=== PATIENT | female | born 1995 | race Caucasian/White ===

== ENCOUNTER 2024-07-29 10:54 | Outpatient (AMB) | payer BC, SELFPAY ==
[2024-07-29 11:14] VITALS: BP 118/80; PULSE 18; RESP 98; TEMP 36.8; O2SAT 96; BMI 28.8
--- NOTE | 2024-07-29 11:14 | AMB.OBINITIA ---
Vital Signs 07/29/24 11:14 Height 1.47 m Height Method Stated Weight 62.652 kg Weight Measurement Method Standing Scale BMI 28.8 BP 118/80 Blood Pressure Source Automatic Cuff Blood Pressure Location Left Upper Arm Position Sitting Respiration 98 H Pulse 18 L Pulse Source Monitor Temp 98.2 F Temp Source Oral Pulse Oximetry (%) 96 Oxygen Delivery Method Room Air Allergies/Home Meds Allergies & Medications Allergies No Known Allergies Allergy (Verified 07/29/24 11:16) Medication Reconciliation No Known Home Medications 07/29/24 [History Confirmed 07/29/24] Intake Visit Data Collection New Patient or Established: New Patient (never been to [facility]) Reason for Visit:: First visit Seen by Clinical Staff ONLY (RN/MA): No Social Science Professor Required: No Do You Feel Safe at Home: Yes Authorities Contacted: N/A Primary Care Provider: no primary care provider PCP or OBGYN visit in last 3 months: No Hx Now: Yes Are you currently on any form of Control: No Last menstrual period: 04/25/24 Pain Present Currently: No Pain Scale Used: Jamison-Ruiz/Numerical Pain scale:: 0 Smoking Status Smoking Status: Never smoker Questionnaires Covid-19 Vaccine Questionnaire Has patient been vacinated for Covid-19 Have you been vacinated for Covid-19: Yes Date of last Covid Vaccine or Booster?: 02/22/22 PHQ-9 PHQ-2 Over the last 2 weeks, how often have you been bothered by any of the following problems? 1. Little interest or pleasure in doing things: not at all 2. Feeling down, depressed, or hopeless: not at all Total score: 0 PHQ-9 3. Trouble falling or staying asleep, or sleeping too much: Not at all 4. Feeling tired or having little energy: Not at all 5. Poor appetite or overeating: Not at all 6. Feeling bad about yourself - or that you are a failure or have let yourself or your family down: Not at all 7. Trouble concentrating on things, such as reading the newspaper or watching television: Not at all 8. Moving or speaking so slowly that other people could have noticed? - Or the opposite - being so fidgety or restless that you have been moving around a lot more than usual: not at all 9. Thoughts that you would be better off or of hurting yourself in some way: Not at all Total score: 0 Source: Developed by Drs. Lucien Arellano, Tiara Wesley, Sukhwinder Faulkner and colleagues, with an educational yamile from [employer]. Depression screen completed yes Social History Living Situation History Marital Status: Lives With: Family Housing: House Housing Other:: Works 3 days a week. Has 2 children at home age 3-1/2 and 21 months. 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 Feel Safe at Home: Yes Past Medical History Past Medical History Have you ever been diagnosed with any of the following: Neurological Problems Meningitis: No Seizures: No Epilepsy: No Fisher's Palsy: No Migraine: No Cardiology Problems Cardiac Arrhythmia: No Heart Murmur: No Hypercholesterolemia: No Hypertension: No Respiratory Problems Asthma: No Pulmonary Embolism: No Smoking: No Stomache/Intestinal Problems Celiac Disease: No Gall Bladder Disease: No Colitis: No Diverticulosis: No Irritable Bowel: No Gastroesophageal Reflux Disease: No Genital/Urinary Problems Renal Disease: No Kidney Stones: No Reproductive Problems Breast Cancer: No Endometriosis: No Fibroids: No Genital Herpes: No Gonorrhea: No Pelvic Inflammatory Disease: No Polycystic Ovarian Syndrome: No Previous Pregnancies: Yes (History of x 2 in 2020 and 2022) Syphilis: No Musculoskeletal Problems Arthritis: No Rheumatoid Arthritis: No Scoliosis: No Fibromyalgia: No Head,Eye,Nose,Throat Problems Glaucoma: No Endocrine Problems Diabetes Mellitus Type 2: No Hyperthyroidism: No Hypothyroidism: No Thyroid Cancer: No Systemic Lupus Erythematosus: No Blood Problems Anemia: No Clotting Problems: No Psychologic Problems Depression: No Anxiety: No Attention Deficit Disorder: No Depression: No Other Problems Hospitalization: Yes (4 x 2 in past) Autoimmune Disease: No Cosmetic Surgery: No Anesthesia Reactions: No Surgical History Appendectomy: No Bariatric Surgery: No Breast Surgery: No Cholecystectomy: No Additional Surgical History: two C Sections History of Present Illness HPI Narrative The patient is a 28-year-old -0-0-2 with a history of x 2 in the past. She used to be a patient of mine in [place] and I did both her C-sections. Patient presents today as a new OB with a last menstrual period 04/25/2024 making her approximately 13-1/2 weeks today with a due date of 01/30/2025. Patient reports significant fatigue. No recent nausea. She does admit that she had some type of gastroenteritis about 5 weeks ago and had to have an IV and got a couple of liters of fluid and felt better. No fevers with that infection. Patient just states she is just worn out this . She is keeping food down. She has 2 boys, her son Sid is going to turn 4 in February and her son Dennys will turn two in October. They are both quite busy. 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 Her Raul is a real estate branch manager. OB Initial Visit Menstrual History Menstrual reliability: definite Flow: normal Menstrual regularity: regular Monthly: Yes Age at menarche: 12 On control pills at conception: No Date of positive home test: 06/04/24 Associated symptoms (LMP): Reports nausea, vomiting and other (headaches) OB History : 3 Para: 2 Hx # Pregnancies: 0 Hx Total # of Abortions (Spontaneous & Elective): 0 # of Living Children: 2 Delivery History 1st : Child's name: Sid date: 02/14/21 sex: male Gestational age at delivery (weeks): 40 Delivery type: Delivery complications: None History of depression before or after : No 2nd : Child's name: Roshni date: 10/03/22 sex: male Gestational age at delivery (weeks): 41 Delivery type: Delivery complications: None History of depression before or after : No Infection History & Risk Evaluation History of STDs: none Varicella/chicken pox status: immunized Genetic Screening & History Genetic Screening/Teratology Counseling - Includes patient, baby's father, or anyone in either family with: 1. Patient's age 35 years or older as of estimated date of delivery: No 2. Thalassemia (Tristanian, [place]er, Mediterranean, or Background); MCV less than 80: No 3. Neural Tube Defect (Meningomyelocele, Spina Bifida, or Anencephaly): No 4. Congenital Heart Defect: No 5. Down Syndrome: No 6. Jonathan-Sachs (Ashkenazi Anglican, Cajun, Portuguese [place]): No 7. Ender Disease (Ashkenazi Anglican): No 8. Familial Dysautonomia (Ashkenazi Anglican): No 9. Sickle Cell Disease or Trait (): No 10. Hemophilia or other blood disorders: No 11. Muscular Dystrophy: No 12. Cystic Fibrosis: No 13. Berkeley's Chorea: No 14. Mental Retardation/Autism: No 15. Other inherited genetic or chromosomal disorder: No 16. Maternal Metabolic Disorder (EG,TYPE 1 Diabetes, PKU): No 17. Patient or baby's father had a child with defects not listed above: No 18. Recurrent loss or a stillbirth: No 19. Medications (including supplements, vitamins, herbs or otc drugs)/illicit/recreational drugs/alcohol since last menstrual period: No 20. Any other: No Comments/Counseling: Pt declines NIPT all fantastic it came back Infection History 1. Live with someone with TB or exposed to TB: No 2. Rash or viral illness since last menstrual period: No 3. Hepatitis B,C: No Other (see comments) Source: [employer] [place] [employer] OB Flowsheet OB Flowsheet Initial Weight: Not Recorded Date <del>?</del> EGA Weight Edema CTX Effacement BP Fundal ht Pres Dilation Effacement Station Visit Note Alb Glu FHR Mov 07/29/24 <del>?</del> 13w 4d 62.652 kg 118/80 147 Review of Systems Constitutional Constitutional: Reports system reviewed and no additional complaints, except as documented Comments: Patient reports fatigue and mild nausea. No significant vomiting no vaginal bleeding no pelvic pain. Gastrointestinal Gastrointestinal: Reports nausea and Reports vomiting Exam General Limitations: no limitations General Appearance: alert, in no apparent distress, comfortable, cooperative, healthy appearing, well groomed and other (Patient appears slightly pale) Head Head exam: atraumatic, normocephalic and normal inspection Neck Neck exam: Present normal inspection, full ROM and trachea midline Chest Chest inspection: Present normal inspection and symmetric chest wall rise Resp Respiratory exam: Present normal lung sounds bilaterally Card Cardiovascular exam: Present regular rate, normal rhythm and normal heart sounds Abdominal Abdominal exam: Present soft, normal bowel sounds and scar (Well-healed Pfannenstiel scar) External exam: Present other (Patient declined a Pap smear today) Bimanual exam: Present normal bimanual exam and uterine enlargement (14 to 15 weeks size) Psych Psychiatric exam: Present normal affect and normal mood Skin Skin exam: Present warm, dry, intact and normal color Assessment & Plan Diagnosis / Problem List (1) History of delivery, currently : Status: Acute Plan: Patient to get records. Plan repeat at 39 weeks. Patient to get labs. Declines NIPT. (2) : Status: Acute Qualifiers: Weeks of gestation: 13 weeks Qualified Code(s): Z3A.13 - 13 weeks gestation of Plan: Patient might consider tubal ligation this . Will sign tubal papers at 30 weeks . Additional Plan Follow Up: 4 Weeks 4 Weeks Office Procedures OB Clinic LOC & Office Proc's Nursing/Assessment Patient Status: Initial/New Patient OB Clinic Nursing Assessment: Medication Reconciliation, Update PMH in EMR and Vital Signs OB Clinic Coordination of Care: Complex Care and Chronic Disease 1-5, Consent,records obtained, informed consent, Education Simp Pt/Fam, Lab and Imaging orders and Staff clarify orders Special Needs: Heart tones Miscellaneous Interventions: Pelvic/Pap Smear Set up New Patient Charge New Patient Point Assignment: [id number] New Patient Point Charge: LANDSCAPE FOREMAN Level 4 ([id number]) ASSET PROTECTION AGENT: Papsmear Pap Smear Procedure [place] in room during procedure?: No Papsmear completed: yes OB Ultrasound OB Ultrasound Ultrasound technique:: transabdominal Gestational sac assessment: Presence, location, size, shape:: Intrauterine with a crown-rump length of 8.24 cm corresponding to 14 weeks 1 day. EDC 01/20/2025. Cardiac activity at 147 bpm noted
== END 2024-07-29 12:52 | disposition home or self-care (01) ==
LOC: HODSOBC 10:54
PROVIDERS: Supervising Provider Obstetrics & Gynecology; Visit Provider Obstetrics & Gynecology
DX: O09.291 Supervision of pregnancy with other poor reproductive or obstetric history, first trimester (principal); O34.219 Maternal care for unspecified type scar from previous cesarean delivery; Z3A.13 13 weeks gestation of pregnancy; Z53.20 Procedure and treatment not carried out because of patient's decision for unspecified reasons
CPT/HCPCS: 99204; Q0091; G0463

== ENCOUNTER → 2024-08-19 | Outpatient (CLI) | payer OTHER, SELFPAY ==
[2024-08-19 12:33] LABS: Collection Type, Urine Clean Catch
[2024-08-19 13:38] LABS: Basophils % (Auto) 0 % (0-2.5); Eosinophils # (Auto) 0.1 Thou/mm3 (0.0-0.5); Eosinophils % (Auto) 1 % (0-10); Hematocrit 38.6 % (36.0-46.0); Hemoglobin 13.3 g/dL (12.0-16.0); Immature Granulocytes % (Auto) 1 % (0-0); Immature Granulocytes Auto 0.13 Thou/mm3 (0.00-0.00); Lymphocytes # (Auto) 1.7 Thou/mm3 (1.0-4.8); Lymphocytes % (Auto) 11 % (10-50); Mean Corpuscular HGB Conc 34.5 g/dl (31.0-37.0); Mean Corpuscular Hemoglobin 30.7 pg (25.0-35.0); Mean Corpuscular Volume 89 fL (80-100); Monocytes # (Auto) 0.8 Thou/mm3 (0.0-0.8); Monocytes % (Auto) 5 % (0-12); Neutrophils # (Auto) 12.5 Thou/mm3 (1.8-7.7); Neutrophils % (Auto) 82 % (37-80); Nucleated Red Blood Cell % 0 /100 WBC (0); Platelet Count 365 Thou/mm3 (140-440); RDW Standard Deviation 41.6 fL (36.4-46.3); Red Blood Count 4.33 Miln/mm3 (4.00-5.20); White Blood Count 15.2 Thou/mm3 (3.6-11.0)
[2024-08-19 13:51] LABS: Bacteria,Urine 1+; Bilirubin,Urine Negative (Negative); Blood,Urine 1+ (Negative); Clarity,Urine Turbid (Clear/Hazy); Color,Urine Lt-Yellow (Lt Yel-Yel); Culture Indicated,Urine Contaminated; Glucose, Urine Negative (Negative); Ketones,Urine Negative (Negative); Leukocyte Esterase,Urine Negative (Negative); Nitrite,Urine Negative (Negative); Protein,Urine Negative (Neg - Trace); RBC,Urine 1 /hpf (0-3); Specific Gravity,Urine 1.008 (1.001-1.035); Squamous Epithelial Cell,Urine 34 /hpf (0-5); Urobilinogen,Urine Negative mg/dL (0.0-1.0); WBC,Urine 1 /hpf (0-5)
[2024-08-19 13:54] LABS: Glucose Estimated Average 94 mg/dL (80-131); Hemoglobin A1C 4.9 % Hgb (4.8-6.0)
[2024-08-19 14:16] LABS: Hepatitis B Surface Antigen Non Reactive (Non React); Rubella, IgG Antibody Reactive (Immune); Vitamin B12 472 pg/mL (211-911); Vitamin D 25 Hydroxy Total 24.4 ng/mL (7.3-40.2)
[2024-08-19 14:57] LABS: HIV (1&2) Antibody Rapid Non-Reactive
== END | disposition home or self-care (01) ==
PROVIDERS: PCP Nurse Practitioner Family; Referring Provider Obstetrics & Gynecology; Visit Provider Obstetrics & Gynecology
DX: Z34.90 Encounter for supervision of normal pregnancy, unspecified, unspecified trimester (principal)
CPT/HCPCS: 36415; 81001; 82306; 82607; 83036; 85025; 86703; 86762; 86850; 86900; 86901; 87340

== ENCOUNTER 2024-09-05 13:10 | Outpatient (AMB) | payer OTHER, SELFPAY ==
[2024-09-05 13:15] VITALS: BP 109/73; PULSE 97; RESP 18; TEMP 36.6; O2SAT 98; BMI 29.6
--- NOTE | 2024-09-05 13:15 | OBCLNT_ITS ---
<Statement entered by Yennifer Centeno (OB Clinic)MD - 09/14/24 15:55> The patient was seen by Dr. Zhou on 09/05/2024 was as I was at the hospital attending to an emergency. Vital Signs 09/05/24 13:15 Height 1.47 m Height Method Stated Weight 64.013 kg Weight Measurement Method Standing Scale BMI 29.6 BP 109/73 Blood Pressure Source Automatic Cuff Blood Pressure Location Left Upper Arm Position Sitting Respiration 18 Pulse 97 Pulse Source Monitor Temp 97.8 F Temp Source Oral Pulse Oximetry (%) 98 Oxygen Delivery Method Room Air Allergies/Home Meds Allergies & Medications Allergies No Known Allergies Allergy (Verified 09/05/24 13:16) Medication Reconciliation No Known Home Medications 07/29/24 [History Confirmed 09/05/24] Intake Visit Data Collection New Patient or Established: Established Patient (seen at [facility] within 3 years) Reason for Visit:: CARE Seen by Clinical Staff ONLY (RN/MA): No Mechanical Service Technician Required: No Do You Feel Safe at Home: Yes Authorities Contacted: N/A PCP or OBGYN visit in last 3 months: Yes Hx Now: Yes Are you currently on any form of Control: No Last menstrual period: 04/25/25 Pain Present Currently: No Pain Scale Used: Jamison-Ruiz/Numerical Pain scale:: 0 Smoking Status Smoking Status: Never smoker Questionnaires Covid-19 Vaccine Questionnaire Has patient been vacinated for Covid-19 Have you been vacinated for Covid-19: Yes PHQ-9 PHQ-2 Over the last 2 weeks, how often have you been bothered by any of the following problems? 1. Little interest or pleasure in doing things: not at all 2. Feeling down, depressed, or hopeless: not at all Total score: 0 PHQ-9 3. Trouble falling or staying asleep, or sleeping too much: Not at all 4. Feeling tired or having little energy: Not at all 5. Poor appetite or overeating: Not at all 6. Feeling bad about yourself - or that you are a failure or have let yourself or your family down: Not at all 7. Trouble concentrating on things, such as reading the newspaper or watching television: Not at all 8. Moving or speaking so slowly that other people could have noticed? - Or the opposite - being so fidgety or restless that you have been moving around a lot more than usual: not at all 9. Thoughts that you would be better off or of hurting yourself in some way: Not at all Total score: 0 Source: Developed by Drs. Lucien Arellano, Tiara Wesley, Sukhwinder Faulkner and colleagues, with an educational yamile from [employer]. Depression screen completed yes Social History Living Situation History Lives With: Family Housing: House Housing Other:: Works 3 days a week. Has 2 children at home age 3-1/2 and 21 months. 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 Feel Safe at Home: Yes Past Medical History Past Medical History Have you ever been diagnosed with any of the following: Neurological Problems Cerebrovascular Accident (CVA): No Transient Ischemic Attacks (TIA): No Meningitis: No Seizures: No Epilepsy: No Fisher's Palsy: No Migraine: No Cardiology Problems Myocardial Infarction: No Cardiac Arrhythmia: No Atrial Fibrillation: No Heart Murmur: No Hypercholesterolemia: No Hypertension: No Hypotension: No Respiratory Problems Chronic Obstructive Pulmonary Disease (COPD): No Asthma: No Bronchitis: No Tuberculosis: No Pulmonary Embolism: No Hx Cough: No Cough: No Wheezing: No Smoking: No Smoking Exposure: No Tobacco Use: No Stomache/Intestinal Problems Liver Cancer: No Hepatitis: No Celiac Disease: No Gall Bladder Disease: No Colitis: No Diverticulosis: No Irritable Bowel: No Gastroesophageal Reflux Disease: No Genital/Urinary Problems Renal Disease: No Kidney Stones: No Reproductive Problems Breast Cancer: No Endometriosis: No Fibroids: No Genital Herpes: No Gonorrhea: No Pelvic Inflammatory Disease: No Polycystic Ovarian Syndrome: No Previous Pregnancies: Yes (History of x 2 in 2020 and 2022) Syphilis: No Musculoskeletal Problems Bone Cancer: No Arthritis: No Rheumatoid Arthritis: No Scoliosis: No Fibromyalgia: No Osteomyelitis: No Poliovirus: No Head,Eye,Nose,Throat Problems Cataracts: No Glaucoma: No Blind: No Retinal Detachment: No Endocrine Problems Diabetes Mellitus Type 2: No Hyperthyroidism: No Hypothyroidism: No Thyroid Cancer: No Systemic Lupus Erythematosus: No Blood Problems Anemia: No Sickle Cell Disease: Yes Clotting Problems: No Psychologic Problems Bipolar Disorder: No Depression: No Anxiety: No Behavior Problems: No Attention Deficit Disorder: No Depression: No Other Problems Hospitalization: Yes (4 x 2 in past) Down Syndrome: No Autism: No Developmental Delay: No Cosmetic Surgery: No Shingles: No Falls: No Blood Transfusions: No Anesthesia Reactions: No Organ Transplant: No Chemotherapy: No Radiation Therapy: No Hyperbaric Therapy: No Chicken Pox: No Measles: No Hepatitis A: No Hepatitis B: No Hepatitis C: No Communicable Disease: No Cancer: No Surgical History Appendectomy: No Bariatric Surgery: No Breast Surgery: No Cancer Surgery: No Cholecystectomy: No History of Present Illness HPI Narrative @19w. She has a history of two previous sections. The patient reports feeling little movement at this stage, describing it as very little movement and a little flutters. She notes that in her previous pregnancies, she didn't feel much movement until about the 5-month marleni. The patient is unsure of the fetus's sex but thinks it might be a girl. She is currently considering her options for contraception after this , including the possibility of tubal ligation, but is also exploring non-permanent alternatives. No CTX/LOF/VB, reports good FM+ Review of Systems Review of Systems Systems Reviewed: All systems reviewed, normal except as documented Visit MOE Calculator Estimated Delivery Date Method Current WG Current Estimate 01/30/25 Ultrasound #1 20w 1d Other Estimates 01/30/25 LMP (Certain) 20w 1d Initial Weight: Not Recorded Date -?-?-?-?-?-?-?-?-?-?-?-?- EGA Weight Edema CTX Effacement BP Fundal ht Pres Dilation Effacement Station Visit Note Alb Glu FHR Mov 07/29/24 -?-?-?-?-?-?-?-?-?-?-?-?- 13w 4d 62.652 kg 118/80 147 09/05/24 -?-?-?-?-?-?-?-?-?-?-?-?- 19w 0d 64.013 kg 109/73 002 at 19 weeks gestation, s/p 2 C-sections. FHR 165 bpm, minimal movement consistent with prior pregnancies. Labs from 08/19/24 normal; urine slightly concentrated. Declined genetic screening. Discussed contraception options including tubal ligation. Plan: Refer to MFM (Dr. Sarah Beth Berman) for anatom y scan at 20?24 weeks Schedule glucose tolerance test and foll ow-up at 24 weeks Await scheduling call from [facility] 145 Exam General Limitations: no limitations General Appearance: alert, in no apparent distress, comfortable, cooperative, healthy appearing, well developed and well groomed Head Head exam: atraumatic, normocephalic and normal inspection Chest Chest inspection: Present normal inspection and symmetric chest wall rise Abdominal Abdominal exam: Present soft and normal bowel sounds Psych Psychiatric exam: Present normal affect and normal mood Skin Skin exam: Present warm, dry, intact and normal color Assessment & Plan Diagnosis / Problem List (1) History of delivery, currently : Status: Acute Plan: , , status post 2 sections Patient is a at 19w gestation based on the context of the visit. She has a history of two previous sections. heart rate was noted to be 165 bpm, which was described as normal. Patient reports minimal movement, describing little flutters, which is consistent with her experience in previous pregnancies. Recent lab work from August 19, 2024, shows normal hemoglobin, chemistry, and serology results. Urine was noted to be slightly concentrated but otherwise unremarkable. - Schedule follow-up visit at 24 weeks gestation - Arrange glucose tolerance test for next visit - Refer to [facility] specialist Dr. Sarah Beth Berman at [facility] for anatomy survey ultrasound between 20-24 weeks - Patient to await call from [facility] to schedule [facility] appointment - Declined genetic screening - Discussed potential for tubal ligation, but patient is considering alternative contraceptive options Office Procedures OB Clinic LOC & Office Proc's Nursing/Assessment Patient Status: Established Patient OB Clinic Nursing Assessment: Medication Reconciliation, Update PMH in EMR and Vital Signs OB Clinic Coordination of Care: Complex Care and Chronic Disease 1-5, Consent,records obtained, informed consent, Education Simp Pt/Fam, Lab and Imaging orders and Staff clarify orders Established Patient Charge Established Patient Point Assignment: 100 Established Patient Point Charge: EP Level 3 (80-115) Bedside Ultrasounds US Transabdominal <14 weeks at bedside: Yes
== END 2024-09-05 14:09 | disposition home or self-care (01) ==
PROVIDERS: PCP Nurse Practitioner Family; Referring Provider Nurse Practitioner Family; Supervising Provider Obstetrics & Gynecology; Visit Provider Obstetrics & Gynecology
DX: O09.292 Supervision of pregnancy with other poor reproductive or obstetric history, second trimester (principal); O34.219 Maternal care for unspecified type scar from previous cesarean delivery; Z3A.19 19 weeks gestation of pregnancy
CPT/HCPCS: 76801; 99213; G0463

== ENCOUNTER 2024-10-11 09:13 | Outpatient (AMB) | payer OTHER, SELFPAY ==
--- NOTE | 2024-10-11 09:15 | OBCLNT_ITS ---
Vital Signs 10/11/24 09:18 Height 1.47 m Height Method Stated Weight 67.132 kg Weight Measurement Method Standing Scale BMI 31.0 BP 112/72 Blood Pressure Source Automatic Cuff Blood Pressure Location Left Upper Arm Position Sitting Respiration 18 Pulse 95 Pulse Source Monitor Temp 97.9 F Temp Source Oral Pulse Oximetry (%) 98 Oxygen Delivery Method Room Air Allergies/Home Meds Allergies & Medications Allergies No Known Allergies Allergy (Verified 10/11/24 09:19) Medication Reconciliation No Known Home Medications 07/29/24 [History Confirmed 10/11/24] Intake Visit Data Collection New Patient or Established: Established Patient (seen at [facility] within 3 years) Reason for Visit:: CARE Seen by Clinical Staff ONLY (RN/MA): No Service Parts Coordinator Required: No Do You Feel Safe at Home: Yes Authorities Contacted: N/A PCP or OBGYN visit in last 3 months: Yes Hx Now: Yes Are you currently on any form of Control: No Pain Present Currently: No Pain Scale Used: Jamison-Ruiz/Numerical Pain scale:: 0 Smoking Status Smoking Status: Never smoker Questionnaires Covid-19 Vaccine Questionnaire Has patient been vacinated for Covid-19 Have you been vacinated for Covid-19: Yes PHQ-9 PHQ-2 Over the last 2 weeks, how often have you been bothered by any of the following problems? 1. Little interest or pleasure in doing things: not at all 2. Feeling down, depressed, or hopeless: not at all Total score: 0 PHQ-9 3. Trouble falling or staying asleep, or sleeping too much: Not at all 4. Feeling tired or having little energy: Not at all 5. Poor appetite or overeating: Not at all 6. Feeling bad about yourself - or that you are a failure or have let yourself or your family down: Not at all 7. Trouble concentrating on things, such as reading the newspaper or watching television: Not at all 8. Moving or speaking so slowly that other people could have noticed? - Or the opposite - being so fidgety or restless that you have been moving around a lot more than usual: not at all 9. Thoughts that you would be better off or of hurting yourself in some way: Not at all Total score: 0 Source: Developed by Tiara BourgeoisW. Lupillo, Sukhwinder Faulkner and colleagues, with an educational yamile from [employer]. Depression screen completed yes Social History Living Situation History Lives With: Family Housing: House Housing Other:: Works 3 days a week. Has 2 children at home age 3-1/2 and 21 months. 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 Feel Safe at Home: Yes Past Medical History Past Medical History Have you ever been diagnosed with any of the following: Neurological Problems Cerebrovascular Accident (CVA): No Transient Ischemic Attacks (TIA): No Meningitis: No Seizures: No Epilepsy: No Fisher's Palsy: No Migraine: No Cardiology Problems Myocardial Infarction: No Cardiac Arrhythmia: No Atrial Fibrillation: No Heart Murmur: No Hypercholesterolemia: No Hypertension: No Hypotension: No Respiratory Problems Chronic Obstructive Pulmonary Disease (COPD): No Asthma: No Bronchitis: No Tuberculosis: No Pulmonary Embolism: No Hx Cough: No Cough: No Wheezing: No Smoking: No Smoking Exposure: No Tobacco Use: No Stomache/Intestinal Problems Liver Cancer: No Hepatitis: No Celiac Disease: No Gall Bladder Disease: No Colitis: No Diverticulosis: No Irritable Bowel: No Gastroesophageal Reflux Disease: No Genital/Urinary Problems Renal Disease: No Kidney Stones: No Reproductive Problems Breast Cancer: No Endometriosis: No Fibroids: No Genital Herpes: No Gonorrhea: No Pelvic Inflammatory Disease: No Polycystic Ovarian Syndrome: No Previous Pregnancies: Yes (History of x 2 in 2020 and 2022) Syphilis: No Musculoskeletal Problems Bone Cancer: No Arthritis: No Rheumatoid Arthritis: No Scoliosis: No Fibromyalgia: No Osteomyelitis: No Poliovirus: No Head,Eye,Nose,Throat Problems Cataracts: No Glaucoma: No Blind: No Retinal Detachment: No Endocrine Problems Diabetes Mellitus Type 2: No Hyperthyroidism: No Hypothyroidism: No Thyroid Cancer: No Systemic Lupus Erythematosus: No Blood Problems Anemia: No Sickle Cell Disease: Yes Clotting Problems: No Psychologic Problems Bipolar Disorder: No Depression: No Anxiety: No Behavior Problems: No Attention Deficit Disorder: No Depression: No Other Problems Hospitalization: Yes (4 x 2 in past) Down Syndrome: No Autism: No Developmental Delay: No Cosmetic Surgery: No Shingles: No Falls: No Blood Transfusions: No Anesthesia Reactions: No Organ Transplant: No Chemotherapy: No Radiation Therapy: No Hyperbaric Therapy: No Chicken Pox: No Measles: No Hepatitis A: No Hepatitis B: No Hepatitis C: No Communicable Disease: No Cancer: No Surgical History Appendectomy: No Bariatric Surgery: No Breast Surgery: No Cancer Surgery: No Cholecystectomy: No History of Present Illness HPI Narrative The patient is a 28 y/o , history of x 2. For repeat C- section. She is . Her is a rancher. She has 2 boys Nnamdi and Dennys. Care OB Visit Log OB Flowsheet Initial Weight: Not Recorded Date -?-?-?-?-?-?-?-?-?-?-?-?- EGA Weight Edema CTX Effacement BP Fundal ht Pres Dilation Effacement Station Visit Note Alb Glu FHR Mov 07/29/24 -?-?-?-?-?-?-?-?-?-?-?-?- 13w 4d 62.652 kg 118/80 147 09/05/24 -?-?-?-?-?-?-?-?-?-?-?-?- 19w 0d 64.013 kg 109/73 002 at 19 weeks gestation, s/p 2 C-sections. FHR 165 bpm, minimal movement consistent with prior pregnancies. Labs from 08/19/24 normal; urine slightly concentrated. Declined genetic screening. Discussed contraception options including tubal ligation. Plan: Refer to [facility] (Dr. Sarah Beth Berman) for anatom y scan at 20?24 weeks Schedule glucose tolerance test and foll ow-up at 24 weeks Await scheduling call from [facility]?s 145 10/11/24 -?-?-?-?-?-?-?-?-?-?-?-?- 24w 1d 67.132 kg 112/72 25 G ood movement no vaginal bleeding. She thinks it is a girl on ultrasound no report for ultrasound back yet 147 MOE Calculator Estimated Delivery Date Method Current WG Current Estimate 01/30/25 Ultrasound #1 24w 3d Other Estimates 01/30/25 LMP (Certain) 24w 3d Comments: labs 08/19/2024 at [facility]: O+/antibody negative/hepatitis B surface antigen negative//HIV negative/rubella immune. No RPR, urinalysis, GC, chlamydia available even though these were ordered on the panel Expected Delivery Route/Plan History of x 2. Schedule repeat between 38 and 39 weeks. Specific Issue/Plans Patient's will get vasectomy declines tubal ligation. Declined NIPT Notes Visit Date: 10/11/24 Last Updated by: Yennifer Centeno (OB Clinic)MD Need ultrasound report. GCT ordered. Need RPR, urine culture, GC, chlamydia as these were not done at [facility] as ordered. Office Procedures OB Clinic LOC & Office Proc's Nursing/Assessment Patient Status: Established Patient OB Clinic Nursing Assessment: Medication Reconciliation, Update PMH in EMR and Vital Signs OB Clinic Coordination of Care: Complex Care and Chronic Disease 1-5, Consent,records obtained, informed consent, Education Simp Pt/Fam, Lab and Imaging orders, Results/Orders obtained and Staff clarify orders Special Needs: Heart tones Established Patient Charge Established Patient Point Assignment: 135 Established Patient Point Charge: EP Level 4 (120-155)
[2024-10-11 09:18] VITALS: BP 112/72; PULSE 95; RESP 18; TEMP 36.6; O2SAT 98; BMI 31.0
== END 2024-10-11 09:51 | disposition home or self-care (01) ==
LOC: HODSOBC 09:13
PROVIDERS: PCP Nurse Practitioner Family; Referring Provider Nurse Practitioner Family; Supervising Provider Obstetrics & Gynecology; Visit Provider Obstetrics & Gynecology
DX: O09.292 Supervision of pregnancy with other poor reproductive or obstetric history, second trimester (principal); Z3A.24 24 weeks gestation of pregnancy; O34.219 Maternal care for unspecified type scar from previous cesarean delivery
CPT/HCPCS: 81001; 99214; G0463

== ENCOUNTER 2024-11-13 09:24 | Outpatient (AMB) | payer OTHER, SELFPAY ==
[2024-11-13 09:40] VITALS: BP 119/78; PULSE 106; RESP 18; TEMP 36.7; O2SAT 95; BMI 31.8
--- NOTE | 2024-11-13 09:40 | OBCLNT_ITS ---
Vital Signs 11/13/24 09:40 Height 1.47 m Height Method Stated Weight 68.663 kg Weight Measurement Method Standing Scale BMI 31.8 BP 119/78 Blood Pressure Source Automatic Cuff Blood Pressure Location Right Upper Arm Position Sitting Respiration 18 Pulse 106 H Pulse Source Monitor Temp 98.0 F Temp Source Temporal Artery Scan Pulse Oximetry (%) 95 Oxygen Delivery Method Room Air Allergies/Home Meds Allergies & Medications Allergies No Known Allergies Allergy (Verified 10/11/24 09:19) Intake Visit Data Collection New Patient or Established: Established Patient (seen at [facility] within 3 years) Reason for Visit:: OB FOLLOW UP Director Of Mechanical Engineering Required: No Do You Feel Safe at Home: Yes Authorities Contacted: N/A PCP or OBGYN visit in last 3 months: Yes Date of Last PCP or OBGYN visit: 10/11/24 Hx Now: Yes Are you currently on any form of Control: No Last menstrual period: 04/25/24 Pain Present Currently: No Smoking Status Smoking Status: Never smoker Questionnaires PHQ-9 PHQ-2 Over the last 2 weeks, how often have you been bothered by any of the following problems? 1. Little interest or pleasure in doing things: not at all PHQ-9 8. Moving or speaking so slowly that other people could have noticed? - Or the opposite - being so fidgety or restless that you have been moving around a lot more than usual: not at all Source: Developed by Drs. Lucien Arellano, Tiara Wesley, Sukhwinder Faulkner and colleagues, with an educational yamile from [employer]. Social History Living Situation History Lives With: Family Housing: House Housing Other:: Works 3 days a week. Has 2 children at home age 3-1/2 and 21 months. 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 Her son she has 2 sons at home Nnamdi and Dennys and this 1 is a daughter. She is not interested in tubal ligation her might pursue a vasectomy. Care OB Visit Log OB Flowsheet Initial Weight: Not Recorded Date -?-?-?-?-?-?-?-?-?-?-?-?- EGA Weight BP Alb Glu CTX Pres Fundal ht FHR Mov Dilation Station Effacement Hx Notes Visit Note 07/29/24 -?-?-?-?-?-?-?-?-?-?-?-?- 13w 4d 62.652 kg 118/80 147 09/05/24 -?-?-?-?-?-?-?-?-?-?-?-?- 19w 0d 64.013 kg 109/73 145 at 19 weeks gestation, s/p 2 C- sections. FHR 165 bpm, minimal movement consistent with prior pregnancies. Labs from 08/19/24 normal; urine slightly concentrated. Declined genetic screening. Discussed contraception options including tubal ligation. Plan: Refer to [facility] (Dr. Sarah Beth Berman) for anatom y scan at 20?24 weeks Schedule glucose tolerance test and foll ow-up at 24 weeks Await scheduling call from [facility]?s 10/11/24 -?-?-?-?-?-?-?-?-?-?-?-?- 24w 1d 67.132 kg 112/72 25 147 Good movement no vaginal bleeding. She thinks it is a girl on ultrasound no report for ultrasound back yet 11/13/24 -?-?-?-?-?-?-?-?-?-?-?-?- 28w 6d 68.663 kg 119/78 29 146 Good movement no contractions no vaginal bleeding. Ordered Ordered GCT MOE Calculator Estimated Delivery Date Method Current WG Current Estimate 01/30/25 Ultrasound #1 28w 6d Other Estimates 01/30/25 LMP (Certain) 28w 6d Comments: LMP 04/25/2024 EDC 01/30/2025 A positive/ antibody screen negative/ rubella immune /RPR not checked /HIV negat karen/ hepatitis B surface antigen negative/ no GC no chlamydia no urine culture checked even though ordered at [facility]. Expected Delivery Route/Plan History of x 2. Schedule repeat between 38 and 39 weeks. Specific Issue/Plans Patient's will get vasectomy declines tubal ligation. Declined NIPT Notes Visit Date: 10/11/24 Last Updated by: Yennifer Centeno (OB Clinic)MD Need ultrasound report. GCT ordered. Need RPR, urine culture, GC, chlamydia as these were not done at [facility] as ordered. Office Procedures OB Clinic LOC & Office Proc's Nursing/Assessment Patient Status: Established Patient OB Clinic Nursing Assessment: BP Monitoring, Medication Reconciliation, Update PMH in EMR and Vital Signs OB Clinic Coordination of Care: Complex Care and Chronic Disease 1-5, Consen t,records obtained, informed consent, Lab and Imaging orders and Results/Orders obtained Special Needs: Heart tones Established Patient Charge Established Patient Point Assignment: 125 Established Patient Point Charge: EP Level 4 (120-155) Assessment & Plan Diagnosis / Problem List (1) History of delivery, currently : Status: Acute Assessment and Plan: Schedule approximately 1 week prior to due date around January 23, 2025 patient declines tubal ligation her might consider vasectomy. (2) : Status: Acute Qualifiers: Weeks of gestation: 29 weeks Qualified Code(s): Z3A.29 - 29 weeks gestation of
== END 2024-11-13 09:53 | disposition home or self-care (01) ==
LOC: HODSOBC 09:24
PROVIDERS: PCP Nurse Practitioner Family; Referring Provider Nurse Practitioner Family; Supervising Provider Obstetrics & Gynecology; Visit Provider Obstetrics & Gynecology
DX: O09.293 Supervision of pregnancy with other poor reproductive or obstetric history, third trimester (principal); O34.219 Maternal care for unspecified type scar from previous cesarean delivery; Z3A.28 28 weeks gestation of pregnancy
CPT/HCPCS: 99214; G0463

== ENCOUNTER 2024-12-05 14:02 | Outpatient (AMB) | payer OTHER, SELFPAY ==
[2024-12-05 14:20] VITALS: BP 109/72; PULSE 84; RESP 17; TEMP 36.8; O2SAT 97; BMI 32.3
--- NOTE | 2024-12-05 14:20 | OBCLNT_ITS ---
Vital Signs 12/05/24 14:20 Height 1.47 m Height Method Stated Weight 69.967 kg Weight Measurement Method Standing Scale BMI 32.3 BP 109/72 Blood Pressure Source Automatic Cuff Blood Pressure Location Right Upper Arm Position Sitting Respiration 17 Pulse 84 Pulse Source Monitor Temp 98.2 F Temp Source Temporal Artery Scan Pulse Oximetry (%) 97 Oxygen Delivery Method Room Air Allergies/Home Meds Allergies & Medications Allergies No Known Allergies Allergy (Verified 12/05/24 14:21) Medication Reconciliation No Known Home Medications 07/29/24 [History Confirmed 12/05/24] Intake Visit Data Collection New Patient or Established: Established Patient (seen at [facility] within 3 years) Reason for Visit:: OBC Seen by Clinical Staff ONLY (RN/MA): No Compliance Testing Analyst Required: No Do You Feel Safe at Home: Yes Authorities Contacted: N/A PCP or OBGYN visit in last 3 months: Yes Date of Last PCP or OBGYN visit: 11/13/24 Hx Now: Yes Pain Present Currently: No Pain Scale Used: Jamison-Ruiz/Numerical Pain scale:: 0 Smoking Status Smoking Status: Never smoker Questionnaires Covid-19 Vaccine Questionnaire Has patient been vacinated for Covid-19 Have you been vacinated for Covid-19: No PHQ-9 PHQ-2 Over the last 2 weeks, how often have you been bothered by any of the following problems? 1. Little interest or pleasure in doing things: not at all 2. Feeling down, depressed, or hopeless: not at all Total score: 0 PHQ-9 3. Trouble falling or staying asleep, or sleeping too much: Not at all 4. Feeling tired or having little energy: Not at all 5. Poor appetite or overeating: Not at all 6. Feeling bad about yourself - or that you are a failure or have let yourself or your family down: Not at all 7. Trouble concentrating on things, such as reading the newspaper or watching television: Not at all 8. Moving or speaking so slowly that other people could have noticed? - Or the opposite - being so fidgety or restless that you have been moving around a lot more than usual: not at all 9. Thoughts that you would be better off or of hurting yourself in some way: Not at all Total score: 0 If you checked off any problems, how difficult have these problems made it for you to do your work, take care of things at home, or get along with other people?: not difficult at all Source: Developed by Drs. Lucien Arellano, Tiara Wesley, Sukhwinder Faulkner and colleagues, with an educational yamile from [employer]. Depression screen completed yes Social History Living Situation History Marital Status: Lives With: Family Housing: House Housing Other:: Works 3 days a week. Has 2 children at home age 3-1/2 and 21 months. 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 History Past Medical History: No Hx Hypothyroidism, No Hx Hyperthyroidism, No Hx Breast Cancer, No Hx Hypertension, No Hx Cancer, No Hx Anemia, No Hx Renal Disease, No Hx Diabetes Mellitus Type 2 and No Hx Polycystic Ovarian Syndrome Care OB Visit Log OB Flowsheet Initial Weight: 61 kg Date -?-?-?-?-?-?-?-?-?-?-?-?- EGA Weight BP Alb Glu CTX Pres Fundal ht FHR Mov Dilation Station Effacement Hx Notes Visit Note 07/29/24 -?-?-?-?-?-?-?-?-?-?-?-?- 13w 4d 62.652 kg (+1652.446 g) 118/80 147 09/05/24 -?-?-?--?-?-?-?-?-?-?-?-?- 19w 0d 64.013 kg (+3013.223 g) 109/73 145 at 19 weeks gestation, s/p 2 C- sections. FHR 165 bpm, minimal movement consistent with prior pregnancies. Labs from 08/19/24 normal; urine slightly concentrated. Declined genetic screening. Discussed contraception options including tubal ligation. Plan: Refer to [facility] (Dr. Sarah Beth Berman) for anatom y scan at 20?24 weeks Schedule glucose tolerance test and foll ow-up at 24 weeks Await scheduling call from [facility] 10/11/24 -?-?-?-?-?-?-?-?-?-?-?-?- 24w 1d 67.132 kg (+6131.67 g) 112/72 25 147 Good movement no vaginal bleeding. She thinks it is a girl on ultrasound no report for ultrasound back yet 11/13/24 -?-?-?-?-?-?-?-?-?-?-?-?- 28w 6d 68.663 kg (+7662.545 g) 119/78 29 146 Good movement no contractions no vaginal bleeding. Ordered Ordered GCT 12/05/24 -?-?-?-?-?-?-?-?-?-?-?-?- 32w 0d 69.967 kg (+8966.623 g) 109/72 32 137 Positive movement no contractions no leaking fluid Just had GCT don e MOE Calculator Estimated Delivery Date Method Current WG Current Estimate 01/30/25 Ultrasound #1 32w 0d Other Estimates 01/30/25 LMP (Certain) 32w 0d Expected Delivery Route/Plan -0-0-2 history of x 2. Schedule repeat between 38 and 39 weeks. Specific Issue/Plans Patient's will get vasectomy declines tubal ligation. Declined NIPT A positive/antibody negative/rubella immune/RPR not checked at [facility] but ordered/hepatitis B surface antigen negative/HIV negative Notes Visit Date: 12/05/24 Last Updated by: Yennifer Centeno (OB Clinic)MD Patient states the only ultrasound she has had was a [facility] about 18 weeks. Visit Date: 10/11/24 Last Updated by: Yennifer Centeno (OB Clinic)MD Need ultrasound report. GCT ordered. Need RPR, urine culture, GC, chlamydia as these were not done at [facility] as ordered. Office Procedures OB Clinic LOC & Office Proc's Nursing/Assessment Patient Status: Established Patient OB Clinic Nursing Assessment: Medication Reconciliation, Update PMH in EMR and Vital Signs OB Clinic Coordination of Care: Complex Care and Chronic Disease 1-5, Consent,records obtained, informed consent, Education Simp Pt/Fam and Staff clarify orders Special Needs: Heart tones Established Patient Charge Established Patient Point Assignment: 115 Established Patient Point Charge: EP Level 3 (80-115) Assessment & Plan Diagnosis / Problem List (1) History of delivery, currently : Status: Acute Assessment and Plan: Schedule at 38 to 39 weeks (2) : Status: Acute Qualifiers: Weeks of gestation: 32 weeks Qualified Code(s): Z3A.32 - 32 weeks gestation of Assessment and Plan: Follow-up in 3 weeks
== END 2024-12-05 15:00 | disposition home or self-care (01) ==
LOC: HODSOBC 14:02
PROVIDERS: PCP Nurse Practitioner Family; Referring Provider Nurse Practitioner Family; Supervising Provider Obstetrics & Gynecology; Visit Provider Obstetrics & Gynecology
DX: O09.293 Supervision of pregnancy with other poor reproductive or obstetric history, third trimester (principal); O34.219 Maternal care for unspecified type scar from previous cesarean delivery; Z3A.32 32 weeks gestation of pregnancy
CPT/HCPCS: 99213; G0463

== ENCOUNTER 2024-12-25 11:15 | Outpatient (AMB) | payer OTHER, SELFPAY ==
[2024-12-25 11:36] VITALS: BP 112/75; PULSE 89; RESP 17; TEMP 36.8; O2SAT 97; BMI 32.8
--- NOTE | 2024-12-25 11:36 | OBCLNT_ITS ---
Vital Signs 12/25/24 11:36 Height 1.47 m Height Method Measured Weight 70.931 kg Weight Measurement Method Standing Scale BMI 32.8 BP 112/75 Blood Pressure Source Automatic Cuff Blood Pressure Location Right Upper Arm Position Sitting Respiration 17 Pulse 89 Pulse Source Monitor Temp 98.3 F Temp Source Temporal Artery Scan Pulse Oximetry (%) 97 Oxygen Delivery Method Room Air Allergies/Home Meds Allergies & Medications Allergies No Known Allergies Allergy (Verified 12/25/24 11:36) Medication Reconciliation No Known Home Medications 07/29/24 [History Confirmed 12/25/24] Intake Visit Data Collection New Patient or Established: Established Patient (seen at [facility] within 3 years) Reason for Visit:: OBC Consent obtained for Telemed Visit: No Seen by Clinical Staff ONLY (RN/MA): No Stacker Driver Required: No Do You Feel Safe at Home: Yes Authorities Contacted: N/A PCP or OBGYN visit in last 3 months: Yes Date of Last PCP or OBGYN visit: 12/05/24 Hx Now: Yes Are you currently on any form of Control: No Pain Present Currently: No Pain Scale Used: Jamison-Ruiz/Numerical Pain scale:: 0 Smoking Status Smoking Status: Never smoker Questionnaires Covid-19 Vaccine Questionnaire Has patient been vacinated for Covid-19 Have you been vacinated for Covid-19: Yes PHQ-9 PHQ-2 Over the last 2 weeks, how often have you been bothered by any of the following problems? 1. Little interest or pleasure in doing things: not at all PHQ-9 8. Moving or speaking so slowly that other people could have noticed? - Or the opposite - being so fidgety or restless that you have been moving around a lot more than usual: not at all Source: Developed by Drs. Lucien Arellano, Tiara Wesley, Sukhwinder Faulkner and colleagues, with an educational yamile from [employer]. Social History Living Situation History Lives With: Family Housing: House Housing Other:: Works 3 days a week. Has 2 children at home age 3-1/2 and 21 months. 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 She has history of x 2 for repeat her will get a vasectomy after this baby delivers. Care OB Visit Log OB Flowsheet Initial Weight: 61 kg Date -?-?-?-?-?-?-?-?-?-?-?-?- EGA Weight BP Alb Glu CTX Pres Fundal ht FHR Mov Dilation Station Effacement Hx Notes Visit Note 07/29/24 -?-?-?-?-?-?-?-?-?-?-?-?- 13w 4d 62.652 kg (+1652.446 g) 118/80 147 09/05/24 -?-?-?-?-?-?-?-?-?-?-?-?- 19w 0d 64.013 kg (+3013.223 g) 109/73 145 at 19 weeks gestation, s/p 2 C- sections. FHR 165 bpm, minimal movement consistent with prior pregnancies. Labs from 08/19/24 normal; urine slightly concentrated. Declined genetic screening. Discussed contraception options including tubal ligation. Plan: Refer to [facility] (Dr. Sarah Beth Berman) for anatom y scan at 20?24 weeks Schedule glucose tolerance test and foll ow-up at 24 weeks Await scheduling call from [facility]?s 10/11/24 -?-?-?-?-?-?-?-?-?-?-?-?- 24w 1d 67.132 kg (+6131.67 g) 112/72 25 147 Good movement no vaginal bleeding. She thinks it is a girl on ultrasound no report for ultrasound back yet 11/13/24 -?-?-?-?-?-?-?-?-?-?-?-?- 28w 6d 68.663 kg (+7662.545 g) 119/78 29 146 Good movement no contractions no vaginal bleeding. Ordered Ordered GCT 12/05/24 -?-?-?-?-?-?-?-?-?-?-?-?- 32w 0d 69.967 kg (+8966.623 g) 109/72 32 137 Positive movement no contractions no leaking fluid Just had GCT don e 12/25/24 -?-?-?-?-?-?-?-?-?-?-?-?- 34w 6d 70.931 kg (+9930.507 g) 112/75 34 145 Positive movement no contractions no loss of fluid Scheduled C-sect ion 01/24/2025 MOE Calculator Estimated Delivery Date Method Current WG Current Estimate 01/30/25 Ultrasound #1 34w 6d Other Estimates 01/30/25 LMP (Certain) 34w 6d Expected Delivery Route/Plan -0-0-2 history of x 2. Schedule repeat between 38 and 39 weeks. Specific Issue/Plans Patient's will get vasectomy declines tubal ligation. Declined NIPT A positive/antibody negative/rubella immune/RPR not checked at [facility] but ordered/hepatitis B surface antigen negative/HIV negative Notes Visit Date: 12/05/24 Last Updated by: Yennifer Centeno (OB Clinic)MD Patient states the only ultrasound she has had was a [facility] about 18 weeks. Visit Date: 10/11/24 Last Updated by: Yennifer Centeno (OB Clinic)MD Need ultrasound report. GCT ordered. Need RPR, urine culture, GC, chlamydia as these were not done at [facility] as ordered. Office Procedures OB Clinic LOC & Office Proc's Nursing/Assessment Patient Status: Established Patient OB Clinic Nursing Assessment: Medication Reconciliation, Update PMH in EMR and Vital Signs OB Clinic Coordination of Care: Complex Care and Chronic Disease 1-5, Consent,records obtained, informed consent, Education Simp Pt/Fam and 4+ Authorizations needed Special Needs: Heart tones Established Patient Charge Established Patient Point Assignment: 130 Established Patient Point Charge: EP Level 4 (120-155) Assessment & Plan Diagnosis / Problem List (1) : Status: Acute Qualifiers: Weeks of gestation: 34 weeks Qualified Code(s): Z3A.34 - 34 weeks gestation of (2) Small for gestational age fetus: Status: Acute Assessment and Plan: Check ultrasound for growth
== END 2024-12-25 11:50 | disposition home or self-care (01) ==
LOC: HODSOBC 11:15
PROVIDERS: PCP Nurse Practitioner Family; Referring Provider Nurse Practitioner Family; Supervising Provider Obstetrics & Gynecology; Visit Provider Obstetrics & Gynecology
DX: O09.893 Supervision of other high risk pregnancies, third trimester (principal); O36.5930 Maternal care for other known or suspected poor fetal growth, third trimester, not applicable or unspecified; O09.293 Supervision of pregnancy with other poor reproductive or obstetric history, third trimester; O34.219 Maternal care for unspecified type scar from previous cesarean delivery; Z3A.34 34 weeks gestation of pregnancy
CPT/HCPCS: 99214; G0463

== ENCOUNTER 2025-01-08 15:21 | Outpatient (AMB) | payer OTHER, SELFPAY ==
[2025-01-08 15:37] VITALS: BP 127/78; PULSE 95; RESP 17; TEMP 36.9; O2SAT 97; BMI 33.7
--- NOTE | 2025-01-08 15:37 | AMB.OBVISIT ---
Vital Signs 01/08/25 15:37 Height 1.47 m Height Method Measured Weight 73.028 kg Weight Measurement Method Standing Scale BMI 33.7 BP 127/78 Blood Pressure Source Automatic Cuff Blood Pressure Location Right Upper Arm Position Sitting Respiration 17 Pulse 95 Pulse Source Monitor Temp 98.5 F Temp Source Temporal Artery Scan Pulse Oximetry (%) 97 Oxygen Delivery Method Room Air Allergies/Home Meds Allergies & Medications Allergies No Known Allergies Allergy (Verified 01/08/25 15:39) Medication Reconciliation No Known Home Medications 07/29/24 [History Confirmed 01/08/25] Intake Visit Data Collection New Patient or Established: Established Patient (seen at [facility] within 3 years) Reason for Visit:: OBC Consent obtained for Telemed Visit: No Seen by Clinical Staff ONLY (RN/MA): No Minister Assistant Required: No Do You Feel Safe at Home: Yes Authorities Contacted: N/A PCP or OBGYN visit in last 3 months: Yes Date of Last PCP or OBGYN visit: 12/25/24 Hx Now: Yes Are you currently on any form of Control: No Pain Present Currently: No Pain Scale Used: Jamison-Ruiz/Numerical Pain scale:: 0 Smoking Status Smoking Status: Never smoker Questionnaires Covid-19 Vaccine Questionnaire Has patient been vacinated for Covid-19 Have you been vacinated for Covid-19: Yes PHQ-9 PHQ-2 Over the last 2 weeks, how often have you been bothered by any of the following problems? 1. Little interest or pleasure in doing things: not at all PHQ-9 8. Moving or speaking so slowly that other people could have noticed? - Or the opposite - being so fidgety or restless that you have been moving around a lot more than usual: not at all Source: Developed by Drs. Lucien Arellano, Tiara Wesley, Sukhwinder Faulkner and colleagues, with an educational yamile from [employer]. Social History Living Situation History Lives With: Family Housing: House Housing Other:: Works 3 days a week. Has 2 children at home age 3-1/2 and 21 months. 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 FHR 165 bpm, minimal movement consistent with prior pregnancies. Labs from 08/19/24 normal; urine slightly concentrated. Declined genetic screening. Discussed contraception options including tubal ligation. Plan: Refer to [facility] (Dr. Sarah Beth Berman) for anatomy scan at 20?24 weeks Schedule glucose tolerance test and follow-up at 24 weeks Await scheduling call from [facility]?s 10/11/24 <del>?</del> 24w 1d 67.132 kg (+6131.67 g) 112/72 25 147 Good movement no vaginal bleeding. She thinks it is a girl on ultrasound no report for ultrasound back yet 11/13/24 <del>?</del> 28w 6d 68.663 kg (+7662.545 g) 119/78 29 146 Good movement no contractions no vaginal bleeding. Ordered Ordered GCT 12/05/24 <del>?</del> 32w 0d 69.967 kg (+8966.623 g) 109/72 32 137 Positive movement no contractions no leaking fluid Just had GCT done 12/25/24 <del>?</del> 34w 6d 70.931 kg (+9930.507 g) 112/75 34 145 Positive movement no contractions no loss of fluid Scheduled 01/24/2025 01/08/25 <del>?</del> 36w 6d 73.028 kg (+12.028 kg) 127/78 38 134 active Good movement no contractions no loss of bleeding Schedule ultrasound for size and dates MOE Calculator Estimated Delivery Date Method Current WG Current Estimate 01/30/25 Ultrasound #1 36w 6d Other Estimates 01/30/25 LMP (Certain) 36w 6d Expected Delivery Route/Plan -0-0-2 history of x 2. Schedule repeat between 38 and 39 weeks. Specific Issue/Plans Patient's will get vasectomy declines tubal ligation. Declined NIPT A positive/antibody negative/rubella immune/RPR not checked at [facility] but ordered/hepatitis B surface antigen negative/HIV negative Notes Visit Date: 01/08/25 Last Updated by: Yennifer Centeno (OB Clinic)MD Ultrasound scheduled at [facility] for size dates and placental location. Visit Date: 12/05/24 Last Updated by: Yennifer Centeno (OB Clinic)MD Patient states the only ultrasound she has had was a [facility] about 18 weeks. Visit Date: 10/11/24 Last Updated by: Yennifer Centeno (OB Clinic)MD Need ultrasound report. GCT ordered. Need RPR, urine culture, GC, chlamydia as these were not done at [facility] as ordered. Office Procedures OB Clinic LOC & Office Proc's Nursing/Assessment Patient Status: Established Patient OB Clinic Nursing Assessment: Medication Reconciliation, Update PMH in EMR and Vital Signs OB Clinic Coordination of Care: Complex Care and Chronic Disease 1-5, Consent,records obtained, informed consent, Education Simp Pt/Fam and 4+ Authorizations needed Special Needs: Heart tones Established Patient Charge Established Patient Point Assignment: 130 Established Patient Point Charge: EP Level 4 (120-155) Assessment & Plan Diagnosis / Problem List (1) History of delivery, currently : Status: Acute (2) : Status: Acute Qualifiers: Weeks of gestation: 36 weeks Qualified Code(s): Z3A.36 - 36 weeks gestation of
== END 2025-01-08 16:08 | disposition home or self-care (01) ==
LOC: HODSOBC 15:21
PROVIDERS: Supervising Provider Obstetrics & Gynecology; Visit Provider Obstetrics & Gynecology
DX: O09.293 Supervision of pregnancy with other poor reproductive or obstetric history, third trimester (principal); O34.219 Maternal care for unspecified type scar from previous cesarean delivery; Z3A.36 36 weeks gestation of pregnancy
CPT/HCPCS: 99214; G0463

== ENCOUNTER → 2025-01-08 | Outpatient (CLI) | payer OTHER, SELFPAY ==
--- NOTE | 2025-01-08 16:43 | XR_ITS ---
Examination: Complete OB ultrasound greater than 14 weeks Date and time of exam: January 08, 2025 1445 hours INDICATIONS: Small for gestational age Findings: Viable intrauterine single fetus with single amniotic sac presentation cephalic Cardiac motion 169 BPM Placenta anterior grade 2 Umbilical cord insertion 3 vessel seen Amniotic fluid index 20.5 cm spine maternal right Cervix 4.4 cm. Composite estimated gestational age based on BPD, head circumference, abdominal circumference, femur length is 35 weeks 6 days Estimated weight 2912 g. Survey of intracranial anatomy, spinal anatomy, abdominal anatomy, four-chamber heart performed with no abnormalities identified. Impression: Viable intrauterine gestation cephalic presentation.
== END | disposition home or self-care (01) ==
PROVIDERS: PCP Nurse Practitioner Family; Referring Provider Obstetrics & Gynecology; Visit Provider Obstetrics & Gynecology
DX: O36.5930 Maternal care for other known or suspected poor fetal growth, third trimester, not applicable or unspecified (principal); Z3A.35 35 weeks gestation of pregnancy
CPT/HCPCS: 76805

== ENCOUNTER 2025-01-15 14:35 | Outpatient (AMB) | payer OTHER, SELFPAY ==
[2025-01-15 14:45] VITALS: BP 134/81; PULSE 89; RESP 17; TEMP 36.9; O2SAT 98; BMI 33.5
--- NOTE | 2025-01-15 14:45 | OBCLNT_ITS ---
Vital Signs 01/15/25 14:45 Height 1.47 m Height Method Measured Weight 72.348 kg Weight Measurement Method Standing Scale BMI 33.5 BP 134/81 H Blood Pressure Source Automatic Cuff Blood Pressure Location Right Upper Arm Position Sitting Respiration 17 Pulse 89 Pulse Source Monitor Temp 98.5 F Temp Source Temporal Artery Scan Pulse Oximetry (%) 98 Oxygen Delivery Method Room Air Allergies/Home Meds Allergies & Medications Allergies No Known Allergies Allergy (Verified 01/15/25 14:47) Medication Reconciliation No Known Home Medications 07/29/24 [History Confirmed 01/15/25] Intake Visit Data Collection New Patient or Established: Established Patient (seen at [facility] within 3 years) Reason for Visit:: OBC Consent obtained for Telemed Visit: No Seen by Clinical Staff ONLY (RN/MA): No 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 1. Little interest or pleasure in doing things: not at all PHQ-9 8. Moving or speaking so slowly that other people could have noticed? - Or the opposite - being so fidgety or restless that you have been moving around a lot more than usual: not at all Source: Developed by Drs. Lucien Arellano, Tiara Wesley, Sukhwinder Faulkner and colleagues, with an educational yamile from [employer]. Social History Living Situation History Lives With: Family Housing: House Housing Other:: Works 3 days a week. Has 2 children at home age 3-1/2 and 21 months. 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: Past Medical History Past Medical History: No Hx Hypothyroidism, No Hx Hyperthyroidism, No Hx Breast Cancer, No Hx Hypertension, No Hx Cancer, No Hx Anemia, No Hx Renal Disease, No Hx Diabetes Mellitus Type 2 and No Hx Polycystic Ovarian Syndrome Care OB Visit Log OB Flowsheet Initial Weight: 61 kg Date -?-?-?-?-?-?-?-?-?-?-?-?- EGA Weight BP Alb Glu CTX Pres Fundal ht FHR Mov Dilation Station Effacement Hx Notes Visit Note 07/29/24 -?-?-?-?-?-?-?-?-?-?-?-?- 13w 4d 62.652 kg (+1652.446 g) 118/80 147 09/05/24 -?-?-?-?-?-?-?-?-?-?-?-?- 19w 0d 64.013 kg (+3013.223 g) 109/73 145 at 19 weeks gestation, s/p 2 C- sections. FHR 165 bpm, minimal movement consistent with prior pregnancies. Labs from 08/19/24 normal; urine slightly concentrated. Declined genetic screening. Discussed contraception options including tubal ligation. Plan: Refer to [facility] (Dr. Sarah Beth Berman) for anatom y scan at 20?24 weeks Schedule glucose tolerance test and foll ow-up at 24 weeks Await scheduling call from [facility] 10/11/24 -?-?-?-?-?-?-?-?-?-?-?-?- 24w 1d 67.132 kg (+6131.67 g) 112/72 25 147 Good movement no vaginal bleeding. She thinks it is a girl on ultrasound no report for ultrasound back yet 11/13/24 -?-?-?-?-?-?-?-?-?-?-?-?- 28w 6d 68.663 kg (+7662.545 g) 119/78 29 146 Good movement no contractions no vaginal bleeding. Ordered Ordered GCT 12/05/24 -?-?-?-?-?-?-?-?-?-?-?-?- 32w 0d 69.967 kg (+8966.623 g) 109/72 32 137 Positive movement no contractions no leaking fluid Just had GCT don e 12/25/24 -?-?-?-?-?-?-?-?-?-?-?-?- 34w 6d 70.931 kg (+9930.507 g) 112/75 34 145 Positive movement no contractions no loss of fluid Scheduled C-sect ion 01/24/2025 01/08/25 -?-?-?-?-?-?-?-?-?-?-?-?- 36w 6d 73.028 kg (+12.028 kg) 127/78 38 134 active Good movement no contractions no loss of bleeding Schedule ultras ound for size and dates 01/15/25 -?-?-?-?-?-?-?-?-?-?-?-?- 37w 6d 72.348 kg (+11.348 kg) 134/81 38 135 active Good movement no contractions no loss of fluids Ultrasound from [facility] on the chart from January 08 vertex presentation baby 2912 g. MOE Calculator Estimated Delivery Date Method Current WG Current Estimate 01/30/25 Ultrasound #1 37w 6d Other Estimates 01/30/25 LMP (Certain) 37w 6d Expected Delivery Route/Plan -0-0-2 history of x 2. Schedule repeat between 38 and 39 weeks. Specific Issue/Plans Patient's will get vasectomy declines tubal ligation. Declined NIPT A positive/antibody negative/rubella immune/RPR not checked at [facility] but ordered/hepatitis B surface antigen negative/HIV negative/GCT 120 /strep screen deferred Notes Visit Date: 01/15/25 Last Updated by: Yennifer Centeno (OB Clinic)MD Verbally consented for . She is scheduled 01/24/2025 at 7:30 in the morning. Visit Date: 01/08/25 Last Updated by: Yennifer Centeno (OB Clinic)MD Ultrasound scheduled at [facility] for size dates and placental location. Visit Date: 12/05/24 Last Updated by: Yennifer Centeno (OB Clinic)MD Patient states the only ultrasound she has had was a [facility] about 18 weeks. Visit Date: 10/11/24 Last Updated by: Yennifer Centeno (OB Clinic)MD Need ultrasound report. GCT ordered. Need RPR, urine culture, GC, chlamydia as these were not done at [facility] as ordered. Office Procedures OB Clinic LOC & Office Proc's Nursing/Assessment Patient Status: Established Patient OB Clinic Nursing Assessment: Medication Reconciliation, Update PMH in EMR and Vital Signs OB Clinic Coordination of Care: Complex Care and Chronic Disease 1-5, Consent,records obtained, informed consent, Education Simp Pt/Fam, 4+ Authorizations needed and Results/Orders obtained Special Needs: Heart tones Established Patient Charge Established Patient Point Assignment: 135 Established Patient Point Charge: EP Level 4 (120-155)
== END 2025-01-15 15:03 | disposition home or self-care (01) ==
LOC: HODSOBC 14:35
PROVIDERS: Supervising Provider Obstetrics & Gynecology; Visit Provider Obstetrics & Gynecology
DX: O09.293 Supervision of pregnancy with other poor reproductive or obstetric history, third trimester (principal); O34.219 Maternal care for unspecified type scar from previous cesarean delivery; Z3A.37 37 weeks gestation of pregnancy
CPT/HCPCS: 99214; G0463

== ENCOUNTER 2025-01-24 05:34 | Inpatient (IN) | payer OTHER, SELFPAY ==
[2025-01-24] VITALS (40 sets, daily range): BP systolic 0–144; BP diastolic 0–84; PULSE 25–134; RESP 16–25; TEMP 36.4–37.2; O2SAT 94–100; BMI 33.6
[2025-01-24 06:42] LABS: Basophils # (Auto) 0.0 Thou/mm3 (0.0-0.2); Basophils % (Auto) 0 % (0-2.5); Eosinophils # (Auto) 0.1 Thou/mm3 (0.0-0.5); Eosinophils % (Auto) 1 % (0-10); Hematocrit 34.5 % (36.0-46.0); Hemoglobin 11.1 g/dL (12.0-16.0); Immature Granulocytes Auto 0.05 Thou/mm3 (0.00-0.00); Lymphocytes # (Auto) 2.1 Thou/mm3 (1.0-4.8); Lymphocytes % (Auto) 19 % (10-50); Mean Corpuscular HGB Conc 32.2 g/dl (31.0-37.0); Mean Corpuscular Hemoglobin 26.9 pg (25.0-35.0); Mean Corpuscular Volume 84 fL (80-100); Monocytes # (Auto) 0.9 Thou/mm3 (0.0-0.8); Monocytes % (Auto) 8 % (0-12); Neutrophils # (Auto) 7.7 Thou/mm3 (1.8-7.7); Neutrophils % (Auto) 71 % (37-80); Nucleated Red Blood Cell # 0.00 Thou/mm3 (0.00-0.00); Nucleated Red Blood Cell % 0 /100 WBC (0); Platelet Count 301 Thou/mm3 (140-440); RDW Standard Deviation 42.1 fL (36.4-46.3); Red Blood Count 4.13 Miln/mm3 (4.00-5.20); White Blood Count 10.8 Thou/mm3 (3.6-11.0)
[2025-01-24 07:20] LABS: Syphilis Nonreactive (Nonreactive)
[2025-01-24] MEDS: ceFAZolin/D5W 2 GM IV 2 GM/100 ML BAG IV (07:21)
[2025-01-24] MEDS: FAMOTIDINE INJ 10 MG/ML VIAL 2 ML 20 MG IV (07:30)
[2025-01-24] MEDS: METOCLOPRAMIDE INJ 5 MG/ML VIAL 2 ML 10 MG IVP (07:31)
--- NOTE | 2025-01-24 08:43 | PD.LDHP ---
Documentation for date of: 01/24/25 OB Labor/Induct. HPI History of Present Illness Chief complaint: Patient presents for scheduled elective repeat section : 3 Term pregnancies: 2 pregnancies: 0 Living children: 2 History of Abortions: Spontaneous and Elective: 0 History of sections: Yes History of : No MOE: 01/30/25 Gestational Age (weeks): 39 Gestational Age (days): 1 History of present illness: The patient is a 29-year-old -0-0-2 at 39 weeks. All care uncomplicated with the [facility] obstetrical clinic. She sees Dr. Stephania Centeno. I did her other 2 C-sections in [place]. She presents for scheduled elective repeat section. Of note she does not desire tubal ligation. Her will get a vasectomy. She has had an uncomplicated with no comorbid medical conditions. History of Present Dating criteria: LMP confirmed by 1st trimester US Adequate Care: Yes Ultrasounds: normal mid trimester US Obstetrical complications: none Medical complications: none Labs Maternal Blood Type: A Pos Labs: Positive: Rubella Titre, Negative: RPR, Hepatitis B and HIV and Unknown: Chlamydia, Gonorrhea, Herpes Type 1, Herpes Type 2 and Group Beta Strep Review of Systems Review of Systems Narrative Review of Systems: On the day of admission, the patient reported good movement no contractions no loss of fluids no vaginal bleeding. Past Medical History Surgical History SURGICAL: Positive Section Past Medical History Comments PMH COMMENT: Patient has no significant past medical history. No asthma, no diabetes, no hypertension. Meds Home Medications and Allergies Home Medications ?Medication ?Instructions ?Recorded ?Confirmed ?Type No Known Home Medications 07/29/24 01/24/25 History Allergies Allergy/AdvReac Type Severity Reaction Status Date / Time No Known Allergies Allergy Verified 01/24/25 05:49 OB Exam Physical Exam Vital signs: Temp Pulse BP Pulse Ox O2 Del Method 98.2 F 107 H 131/83 H 94 L Room Air 01/24/25 05:42 01/24/25 07:07 01/24/25 07:07 01/24/25 07:34 01/24/25 05:42 Constitutional Constitutional: no acute distress Comments: Slightly anxious Routine Cardiovascular Exam Cardiovascular: Present RRR Routine Abdominal Exam Abdominal: Present soft and normoactive bowel sounds Detailed Labor and Delivery Exam monitor accelerations: 15x15 monitor decelerations: None nursing home variability: Average (6-10) Contraction frequency (min): Irregular Tachysystole: No Contraction intensity: Mild Routine Extremities Exam Extremities: Present full ROM Routine Skin Exam Skin: Present intact, dry and warm Routine Psychiatric Exam Psychiatric: Present normal affect and normal thought process OB Results Labs 01/24/25 06:13 Labs: Short CBC 01/24/25 Range/Units 06:13 WBC 10.8 (3.6-11.0) Thou/mm3 Hgb 11.1 L (12.0-16.0) g/dL Hct 34.5 L (36.0-46.0) % Plt Count 301 (140-440) Thou/mm3 OB Assessment & Plan Assessment and Plan (1) History of delivery, currently : Status: Acute Assessment and plan: The patient is consented for an elective repeat section at 39 weeks. The patient was consented for the procedure in preop in front of her . The risks of the procedure were discussed with the patient in detail including the risk of bleeding, infection, blood transfusion, damage to bowel, bladder, blood vessels, other organs. Further surgery should any complications occur. All questions were answered, all consents were signed.
--- NOTE | 2025-01-24 08:52 | PD.GYNPROC ---
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 Stephania Centeno at [facility]. She presents for scheduled elective repeat section at 39 weeks. Her will get a vasectomy. She declines tubal ligation. Pre-Op diagnosis: 1. IUP 39 /7 weeks 2. Previous section x 2 Post-Op diagnosis: Same Anesthesia type: Spinal Procedure description: After obtaining informed consent, the patient was brought back to the operating room, and spinal anesthesia administered. She was then prepped and draped in the dorsal supine position with a leftward tilt in a normal sterile fashion. A Vivas catheter was inserted into the patient's bladder. The patient was given 2 g of Ancef by anesthesia. A Pfannenstiel skin incision was made with a scalpel through the patient's prior scar. This was carried down to the underlying fascia. The fascia was incised in the midline and the fascial incision extended laterally using Longoria scissors. The superior aspect the fascia was grasped Marilu clamps and the underlying rectus muscles dissected off using blunt and sharp dissection. This was repeated in the inferior aspect the incision. The rectus muscles were then and cavity entered bluntly with the surgeon's fingers. At this point dense adhesions were noted. The incision was carried down to the underlying uterus. The bladder blade was inserted and the uterus was incised in a low transverse fashion using a scalpel above the bladder reflection. Of note there was a window noted and the incision was performed higher on the uterus in a low transverse fashion in order to have something to reapproximate. The uterus was entered with blunt dissection with the surgeon's fingers and the uterine incision extended laterally using blunt dissection. The bag askew was ruptured and clear fluid was noted. The bladder blade was removed and the was delivered atraumatically. The cord was clamped and cut, and the was handed off to the waiting pediatric staff. Cord blood was collected. Cord gases were saved. The placenta was then manually removed and the uterus could not be exteriorized secondary to dense adhesions. A laparotomy sponge was used to clean out the cavity and to ensure there was no fragments or products of conception present. The uterus was clamped with ring forceps. The uterine incision was then closed using 0 Monocryl in a running locked fashion. Excellent hemostasis was noted. Copious irrigation was carried out and the uterine incision was noted to be hemostatic. Some Surgicel hemostatic powder was placed to obtain excellent hemostasis. After ensuring the rectus muscles were hemostatic, these were reapproximated in the midline using a running suture of 0 Monocryl. The fascia was closed with 0 Vicryl in a running fashion. The subcutaneous tissues were irrigated and found to be hemostatic. These were reapproximated using a running suture of 3-0 plain. The skin was closed with a subcuticular suture of 4-0 Monocryl. The patient tolerated the procedure well, sponge, lap, needle, and instrument counts were correct x 2. The patient went to the recovery area awake and in stable condition. Of note the baby was with mom and dad in recovery in stable condition. Fluids: crystalloid Fluid amount (mL): 500 Urine output (mL): 100 Specimen: none Implants: None Estimated blood loss (ml): 400 Findings: Liveborn female in the OA presentation with no nuchal cord or meconium. Apgars were 9 and 9. Time of was 0806. The placenta was complete spontaneous and grossly normal. The patient had dense adhesions of her uterus to her rectus abdominal muscles. What I could see of the uterus was grossly normal. She had a small window in her lower uterine segment. The patient's tubes ovaries and the remainder of the uterus could not be seen secondary to dense adhesions. The uterus was repaired in situ. Complications: none Surgical staff Cnonie Murphy [employer] Operation Date: 01/24/25 07:45 <No data on this case meets the specified criteria> Diagnosis Discharge Diagnosis (1) History of delivery, currently : Status: Acute Problem details: Status post repeat low-transverse section Problem List Completed Was Problem List Reviewed/Reconciled?: Yes
[2025-01-24] MEDS: KETOROLAC INJ 30 MG/ML VIAL IVP (12:37)
[2025-01-24 13:12] LABS: Chlamydia trachomatis PCR Negative (Not Detect); Neisseria Gonorrhoeae DNA PCR Negative (Not Detect); Trichomonas Negative (Negative)
[2025-01-24] MEDS: OXYTOCIN in NS 20 units 20 UNIT/1,000 ML BAG 125 UNIT IV (15:18)
--- NOTE | 2025-01-24 18:35 | OBDSUM_ITS ---
Data (Zhu) Data Hx Section: Yes Maternal Blood Type: A Pos Rubella Titre: Positive RPR: Non-reactive Labs: Negative: RPR, Hepatitis B, HIV, Chlamydia, Gonorrhea and Group Beta Strep and Unknown: Herpes Type 1 and Herpes Type 2 : 3 Term: 2 : 0 Livin Abortions: Spontaneous & Theraputic: 0 Delivery Data (Zhu) Labor Data Induction/Augmentation Agent: None ROM date: 01/24/25 ROM time: 08:05 Amniotic membrane rupture type: Artificial Amniotic fluid description: Clear Delivery Data EDC: 01/30/25 EDC calculated by:: LMP/early US confirmation Date of arrival to unit: 01/24/25 Time of arrival to unit: 05:30 Runnells delivery date: 01/24/25 delivery time: 08:06 Gestational age (weeks): 39 Gestational age (days): 1 Placenta delivery date: 01/24/25 Placenta delivery time: 08:06 Delivered by: Yennifer Centeno ([facility]) Delivery nurse: B[facility]bara Verdin RN [facility] nurse: Moreno Avalos RN Manager Route at delivery: No Support person(s) at delivery: fob Delivery Method Delivery method: Low Transverse Presentation: Vertex position: OA Anesthesia Type Anesthesia Type: Spinal Anesthesia type: Spinal Delivery Room Medications Delivery room medications: Pitocin 20 u IV Placenta Placenta delivery description: Manual Removal Cord blood sent to lab: Yes cord blood collection: Cord Blood Type Episiotomy Episiotomy description: None EBL Estimated blood loss (ml): 400 Umbilical Cord cord description: 3 Vessels Additional Procedures Op report for further details. Complications Complications: None Data (Zhu) Runnells Data 's name: Sandro 's gender: Female weight (gms): 3486 g Weight (pounds): 7 lbs and 11.0 ozs Runnells length: 53.34 cm 1 minute: 9 5 minutes: 9
[2025-01-25 03:15] VITALS: BP 108/74; PULSE 81; RESP 16; TEMP 37.1; O2SAT 95
[2025-01-25 05:44] LABS: Basophils # (Auto) 0.0 Thou/mm3 (0.0-0.2); Basophils % (Auto) 0 % (0-2.5); Eosinophils # (Auto) 0.0 Thou/mm3 (0.0-0.5); Eosinophils % (Auto) 0 % (0-10); Hematocrit 28.5 % (36.0-46.0); Hemoglobin 9.2 g/dL (12.0-16.0); Immature Granulocytes Auto 0.09 Thou/mm3 (0.00-0.00); Lymphocytes # (Auto) 2.0 Thou/mm3 (1.0-4.8); Lymphocytes % (Auto) 13 % (10-50); Mean Corpuscular HGB Conc 32.3 g/dl (31.0-37.0); Mean Corpuscular Hemoglobin 26.9 pg (25.0-35.0); Mean Corpuscular Volume 83 fL (80-100); Monocytes # (Auto) 1.4 Thou/mm3 (0.0-0.8); Monocytes % (Auto) 9 % (0-12); Neutrophils # (Auto) 12.0 Thou/mm3 (1.8-7.7); Neutrophils % (Auto) 77 % (37-80); Nucleated Red Blood Cell # 0.00 Thou/mm3 (0.00-0.00); Nucleated Red Blood Cell % 0 /100 WBC (0); Platelet Count 256 Thou/mm3 (140-440); RDW Standard Deviation 42.1 fL (36.4-46.3); Red Blood Count 3.42 Miln/mm3 (4.00-5.20); White Blood Count 15.6 Thou/mm3 (3.6-11.0)
[2025-01-25] MEDS: IBUPROFEN TAB 400 MG TABLET 800 MG PO (06:41)
[2025-01-25] MEDS: DOCUSATE SOD 100 MG CAPSULE PO (08:10)
[2025-01-25 08:16] VITALS: BP 114/77; PULSE 86; RESP 16; TEMP 36.9; O2SAT 97
--- NOTE | 2025-01-25 08:32 | ESPR_ITS ---
Subjective Subjective Interval history: The patient is a 29-year-old G3 now P3003 status post repeat #3 yesterday morning. The baby was born about 8 in the morning. Today patient is doing well. Her Vivas catheter is out. She is ambulating. Her pain is controlled with p.o. pain medications she is tolerating a general diet. Her prehemoglobin is 11.1 her postdelivery hemoglobin is 9.2. Patient would like to go home later today if possible. She stated she left with her second at about 24 to 36 hours. Exam Vital Signs Temp Pulse Resp BP Pulse Ox O2 Del Method 98.4 F 86 16 114/77 97 Room Air 01/25/25 08:16 01/25/25 08:16 01/25/25 08:16 01/25/25 08:16 01/25/25 08:16 01/25/25 08:16 Narrative Exam Patient is alert and oriented x 3 resting comfortably in bed. Incision is dressed and dry. Baby is breast-feeding. Fundus is firm. Extremities show no significant edema or erythema. Objective Labs 01/25/25 05:25 Labs: Laboratory Results - last 24 hr 01/24/25 01/25/25 06:48 05:25 WBC 15.6 H D RBC 3.42 L Hgb 9.2 L Hct 28.5 L MCV 83 MCH 26.9 MCHC 32.3 RDW Std Deviation 42.1 Plt Count 256 D Neut % (Auto) 77 Lymph % (Auto) 13 Crockett % (Auto) 9 Eos % (Auto) 0 Baso % (Auto) 0 Neut # (Auto) 12.0 H Lymph # (Auto) 2.0 Crockett # (Auto) 1.4 H Eos # (Auto) 0.0 Baso # (Auto) 0.0 Immature Gran # (Auto) 0.09 H Absolute Nucleated RBC 0.00 Immature Gran % 1 H Nucleated RBC % 0 Chlam trachomat DNA PCR Negative N.gonorrhoeae DNA (PCR) Negative Trichomonas DNA Probe Negative Assessment & Plan Problem List (1) care following delivery: Problem details: The patient is doing well. Encouraged ambulation. Okay to shower. P.o. pain medications. If patient is doing well around dinnertime we will consider discharge home on postop day #1. Status: Acute Time Spent With Patient Time: Total time spent is greater than 50% in coordination of care (as documented) at patient's floor/unit and/or counseling patient: Time with patient: less than 15 minutes
[2025-01-25 13:45] VITALS: BP 106/72; PULSE 86; RESP 16; TEMP 37
--- NOTE | 2025-01-25 14:04 | PC.CC ---
Shannon Galvez is a 29-year-old female admitted for labor and delivery care. Shell Grader made contact with Pt at bedside to complete ob assessment and discuss discharge disposition. Role and reason for the contact was explained to Pt. Demographic information was verified. Pt identified father of baby Raul Galvez [phone] as surrogate decision maker. Pt is independent with all ADLs, no source of DME. PCP is [facility]. At time of discharge patient will return home, family will provide transportation. Mother plans on breast feeing, has car seat, and all supplies for baby. Mother reported no hx of past substance, no DV, no CPS. Mother reports support system provided by extended family and FOB. Discharge Plan: Home Next of Kin: Raul Galvez [phone] PCP: [facility]
--- NOTE | 2025-01-25 17:52 | PD.LDDS ---
DS: Providers Provider Date of admission: 01/24/25 05:34 Primary care physician: Magdy Galvez NP Admitting Provider: Yennifer Centeon MD ([facility]) Attending Provider on Admission: Yennifer Centeno MD ([facility]) Consults: 01/24/25 08:50 Referral Routine Comment: Attending Provider on DC: Yennifer Centeno MD ([facility]) Discharging Provider: Yennifer Centeno MD ([facility]) Anticipated date of discharge: 01/25/25 DS: Diagnosis Discharge Diagnosis (1) care following delivery: Status: Acute Assessment & Plan: Patient is discharged home. She is postoperative day #1 in stable condition she is ambulating tolerating a general diet voiding passing flatus and her pain is controlled with p.o. pain medications. She will follow-up in 2 and 6 weeks in the office. Discharge instructions were given. Problem List Completed Was Problem List Reviewed/Reconciled?: Yes Summary/Hosp Course Brief History: The patient is a 29-year-old -0-0-2 at 39 weeks. All care uncomplicated with the [facility] obstetrical clinic. She sees Dr. Stephania Centeno. I did her other 2 C-sections in [place]. She presents for scheduled elective repeat section. Of note she does not desire tubal ligation. Her will get a vasectomy. She has had an uncomplicated with no comorbid medical conditions. See history and physical for further details. The patient underwent an uncomplicated repeat low-transverse section 01/24/2025. Please see op report for further details. Her predelivery hemoglobin was 11.1. Her postdelivery hemoglobin was 9.2. Her vital signs were stable. By approximately 36 hours after her her section, the patient was ambulating, voiding ,tolerating a general diet ,and passing flatus. Her bleeding was minimal. She desired to go home late postop day #1 and was discharged home in stable condition. She is breast-feeding. Peripartum Data Delivery Method: Low Transverse Episiotomy Description: None Procedures: Procedures Operation Date: 01/24/25 07:45 Actual Procedure Side Surgeon p in OB Yennifer Centeno ([facility])MD complications: none Status at Discharge Cognitive/behavioral status at discharge: Patient is alert and oriented x 3 in no apparent distress. Functional status at discharge: independent ambulation Overall status at discharge: patient is progressing back to baseline Time Spent with Patient Time attestation: Total time spent providing and/or coordinating discharge services: Time spent: Less than 30 minutes Specific discharge activities: No heavy lifting, intercourse, douching, exercise x 6 weeks. Call for severe depression, heavy bleeding or fevers. Exam Vital Signs Temp Pulse Resp BP Pulse Ox O2 Del Method 98.6 F 86 16 106/72 97 Room Air 01/25/25 13:45 01/25/25 13:45 01/25/25 13:45 01/25/25 13:45 01/25/25 08:16 01/25/25 13:45 Narrative Exam Patient is alert and oriented x 3 in no apparent distress fundus is firm nontender incisions clean dry intact extremities show no significant edema or erythema. Discharge Plan Plan Patient Disposition: HOME (Self Care) Disposition Comment: Stable Patient condition on transfer: Stable Prescriptions/Referrals Prescriptions/Med Rec: New hydrocodone-acetaminophen 5-325 mg Tablet 1 tab PO Q4HR MDD 4 PRN (Reason: Patient rated pain 7 to 8) Qty: 30 0RF ibuprofen 400 mg Tablet 800 mg PO Q8HR PRN (Reason: Pain Scale 4-6 (Moderate) Qty: 60 0RF docusate sodium 100 mg Capsule 100 mg PO QDAY Qty: 60 0RF Referrals: Magdy Galvez NP [Primary Care Provider] - Patient/Caregiver Discharge Instructions Discharge Activity: activity as tolerated Other Discharge Activity Instructions:: Pelvic rest x 6 weeks. No heavy lifting, intercourse, douching, bathtubs or swimming x 6 weeks. No heavy exercise x 6 weeks. Ambulate often. Other Discharge Diet Instructions: General Diet, lots of water with breast-feeding. Education Materials: After Delivery [place] Concerns, Breast Care After , C Section Dc Print Language: Georgian Activity Restrictions/Additional Instructions: Call with heavy bleeding, fevers or severe depression follow-up in my office in 2 weeks for incision check and 6 weeks for a visit. Stand Alone Forms: Nisha Award Info., Patient Portal Info Letter Discharge Order Discharge Orders: Discharge (Routine); Ordered 01/25/25 Ordered By: Yennifer Centeno ([facility]) Planned Discharge Date 01/25/25
[2025-01-25] MEDS: HYDROcodone/APAP 5/325 TABLET 1 TAB PO (18:17)
== END 2025-01-25 19:10 | disposition home or self-care (01) | DRG 788 ==
LOC: S4SX 05:36 → S4NX 08:20
PROVIDERS: Admitting Provider Obstetrics & Gynecology; PCP Nurse Practitioner Family; Visit Provider Obstetrics & Gynecology
PROC: 10D00Z1 Extraction of Products of Conception, Low, Open Approach (ICD-10-PCS; CPT 59514; principal; 2025-01-24 07:30)
DX: O34.211 Maternal care for low transverse scar from previous cesarean delivery (principal); Z3A.39 39 weeks gestation of pregnancy; Z37.0 Single live birth
CPT/HCPCS: 36415; 85025; 86780; 86850; 86900; 86901; 87491; 87591; 87661; A4314; A4649; J0689; J1100; J1885; J2250; J2274; J2405; J2590; J2765; J3010; J3490; A9270; J2270

== ENCOUNTER 2025-03-03 13:03 | Outpatient (AMB) | payer OTHER, SELFPAY ==
--- NOTE | 2025-03-03 13:31 | AMB.OBPP ---
Vital Signs 03/03/25 13:32 Height 1.47 m Height Method Stated Weight 61.405 kg Weight Measurement Method Standing Scale BMI 28.3 BP 118/80 Blood Pressure Source Automatic Cuff Blood Pressure Location Left Upper Arm Position Sitting Respiration 16 Pulse 78 Pulse Source Monitor Temp 98.1 F Temp Source Oral Pulse Oximetry (%) 98 Oxygen Delivery Method Room Air Allergies/Home Meds Allergies & Medications Allergies No Known Allergies Allergy (Verified 03/03/25 13:32) Medication Reconciliation docusate sodium 100 mg capsule 100 mg PO QDAY #60 caps 01/25/25 [Rx Confirmed 03/03/25] Intake Visit Data Collection New Patient or Established: Established Patient (seen at [facility] within 3 years) Reason for Visit:: Seen by Clinical Staff ONLY (RN/MA): No Desizing Machine Back Tender Required: No Do You Feel Safe at Home: Yes Authorities Contacted: N/A PCP or OBGYN visit in last 3 months: Yes Hx Now: No Are you currently on any form of Control: No Pain Present Currently: No Pain Scale Used: Jamison-Ruiz/Numerical Pain scale:: 0 Smoking Status Smoking Status: Never smoker 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 Has 2 children at home age 3-1/2 and 21 months. 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 Feel Safe at Home: Yes EPDS - PP Depression Screening [place] Pospartum Depression Screen I have been able to laugh and see the funny side of things: (0) As much as I always could I have looked forward with enjoyment to things: (0) As much as I ever did I have blamed myself unnecessarily when things went wrong: (0) No, never I have been anxious or worried for no good reason: (0) No, not at all I have felt scared or panicky for no very good reason: (0) No, not at all Things have been getting on top of me: (0) No, I have been coping as well as ever I have been so unhappy that I have had difficulty sleeping: (0) No, not at all I have felt sad or miserable: (0) No, not at all I have been so unhappy that I have been crying: (0) No, never The thought of harming myself has occurred to me: (0) Never Total Score: EPDS Score: Referral is indicated for score of 9 or more, suicidal, or if provider believes patient is depressed regardless of score.: 0 EPDS completed yes Care OB Visit Log OB Flowsheet Initial Weight: 61 kg Date <del>?</del> EGA Weight BP Alb Glu CTX Pres Fundal ht FHR Mov Dilation Station Effacement Hx Notes Visit Note 07/29/24 <del>?</del> 13w 4d 62.652 kg (+1652.446 g) 118/80 147 09/05/24 <del>?</del> 19w 0d 64.013 kg (+3013.223 g) 109/73 145 at 19 weeks gestation, s/p 2 C-sections. FHR 165 bpm, minimal movement consistent with prior pregnancies. Labs from 08/19/24 normal; urine slightly concentrated. Declined genetic screening. Discussed contraception options including tubal ligation. Plan: Refer to [facility] (Dr. Sarah Beth Berman) for anatomy scan at 20?24 weeks Schedule glucose tolerance test and follow-up at 24 weeks Await scheduling call from [facility] 10/11/24 <del>?</del> 24w 1d 67.132 kg (+6131.67 g) 112/72 25 147 Good movement no vaginal bleeding. She thinks it is a girl on ultrasound no report for ultrasound back yet 11/13/24 <del>?</del> 28w 6d 68.663 kg (+7662.545 g) 119/78 29 146 Good movement no contractions no vaginal bleeding. Ordered Ordered GCT 12/05/24 <del>?</del> 32w 0d 69.967 kg (+8966.623 g) 109/72 32 137 Positive movement no contractions no leaking fluid Just had GCT done 12/25/24 <del>?</del> 34w 6d 70.931 kg (+9930.507 g) 112/75 34 145 Positive movement no contractions no loss of fluid Scheduled 01/24/2025 01/08/25 <del>?</del> 36w 6d 73.028 kg (+12.028 kg) 127/78 38 134 active Good movement no contractions no loss of bleeding Schedule ultrasound for size and dates 01/15/25 <del>?</del> 37w 6d 72.348 kg (+11.348 kg) 134/81 38 135 active Good movement no contractions no loss of fluids Ultrasound from [facility] on the chart from January 08 vertex presentation baby 2912 g. MOE Calculator Estimated Delivery Date Method Current WG Current Estimate 01/30/25 Ultrasound #1 44w 4d Other Estimates 01/30/25 LMP (Certain) 44w 4d Expected Delivery Route/Plan -0-0-2 history of x 2. Schedule repeat between 38 and 39 weeks. Specific Issue/Plans Patient's will get vasectomy declines tubal ligation. Declined NIPT A positive/antibody negative/rubella immune/RPR not checked at [facility] but ordered/hepatitis B surface antigen negative/HIV negative/GCT 120 /strep screen deferred Notes Visit Date: 01/15/25 Last Updated by: Yennifer Centeno ([facility])MD Verbally consented for . She is scheduled 01/24/2025 at 7:30 in the morning. Visit Date: 01/08/25 Last Updated by: Yennifer Centeno ([facility])MD Ultrasound scheduled at [facility] for size dates and placental location. Visit Date: 12/05/24 Last Updated by: Yennifer Centeno ([facility])MD Patient states the only ultrasound she has had was a [facility] about 18 weeks. Visit Date: 10/11/24 Last Updated by: Yennifer Centeno ([facility])MD Need ultrasound report. GCT ordered. Need RPR, urine culture, GC, chlamydia as these were not done at [facility] as ordered. HPI Interval History: The patient is a 29-year-old G3 now P3003 presents for a visit. She underwent a repeat #[address] Stephania Centeno on 01/24/2025. She denies heavy bleeding. She denies pain. No dysuria no depression she is pumping and exclusively breast-feeding. The baby is 5 weeks old. She states her daughter is doing well. She has 2 sons and now her daughter. She states the middle son Dennys really loves to hang out with the baby. Her only complaint is left hand numbness. She states it is difficult to do anything with her left hand. She states it drives her crazy because it tingles and she feels like she has [id number] in her right hand all day. Of note she is right handed. She states this is new since the delivery. She does not remember hurting her hand she did have an IV in that line but does not remember an infiltration or bruising after delivery. Her will pursue vasectomy. Go ahead and refer her onto a hand physical therapist in [place] for evaluation and treatment. Was or delivery considered high risk: No Delivery type: Was labor induced: no Gestational age at delivery (weeks): 39 Delivery date: 01/24/25 Delivering provider: Dr. 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 complaints: No Narrative Review of Systems: No fevers, chills ,no cramping no pelvic pain, no dysuria Exam Narrative Physical exam: Patient is clean dry and intact fundus is involuted to 6 weeks size General Limitations: no limitations General Appearance: alert, in no apparent distress, comfortable, cooperative, healthy appearing and well groomed Chest Chest inspection: Present normal inspection and symmetric chest wall rise Resp Respiratory exam: Present normal lung sounds bilaterally Card Cardiovascular exam: Present regular rate, normal rhythm and normal heart sounds Abdominal Abdominal exam: Present soft and normal bowel sounds Extremities Extremities exam: Present normal inspection and full ROM Psych Psychiatric exam: Present normal affect and normal mood Skin Skin exam: Present warm, dry, intact and normal color Office Procedures [facility] LOC & Office Proc's Nursing/Assessment Patient Status: Established Patient [facility] Clinic Nursing Assessment: Medication Reconciliation, Update PMH in EMR and Vital Signs OB Clinic Coordination of Care: Complex Care and Chronic Disease 1-5, Consent,records obtained, informed consent, Education Simp Pt/Fam, Lab and Imaging orders, Results/Orders obtained and Staff clarify orders Established Patient Charge Established Patient Point Assignment: 105 Established Patient Point Charge: EP Level 3 (80-115) Assessment & Plan Diagnosis / Problem List (1) Routine Follow-Up: (2) care following delivery: Status: Acute Plan: Patient can go back to all normal activities 1 to 2 weeks. She can have intercourse using condoms. She was given some names of physicians for her to pursue vasectomy. She will follow-up yearly or as needed Care Reviewed delivery summary and any complications: Yes Uterus involuted to: 6 weeks size Perineal / incision healing noted: Yes Screened for depression: Yes Depression counseling provided: No Discussed family planning & contraception: Yes Contraception planned: Condoms then vasectomy Counseling on safe resumption of sexual activity: Yes Counseling on gradual excercise: Yes Discussed and concerns (describe), provided support: Yes Referred to human services program specialist: No Counseled on good nutrition, hydration, and self care: Yes Reviewed vaccine status: No Chronic & current problems reconciled on problem list: Yes Additional follow up plans: Follow-up in 1 year for an annual exam care discussed; questions answered: feeding and sleep Additional counseling & anticipatory guidance provided: Refer to hand physical therapy to address her left hand numbness and tingling. 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 2hr glucose: No Return of menses: No : 3 Parity: 3 Resuming intercourse: Yes control method: permanent sterilization ( to have vasectomy) and condoms Gender: female Date of delivery: 02/24/25 Route of delivery: section Delivering provider: Dr. Stephania Centeno Order: hernandez Delivery outcome: liveborn Interim details: no feeding problems, nursing, no mood concerns and no physical complaints Interim complaints: none [place] concerns: none [place] score: 0
[2025-03-03 13:32] VITALS: BP 118/80; PULSE 78; RESP 16; TEMP 36.7; O2SAT 98; BMI 28.3
== END 2025-03-03 13:55 | disposition home or self-care (01) ==
LOC: HODSOBC 13:03
PROVIDERS: Supervising Provider Obstetrics & Gynecology; Visit Provider Obstetrics & Gynecology
DX: Z39.2 Encounter for routine postpartum follow-up (principal); Z39.1 Encounter for care and examination of lactating mother
CPT/HCPCS: 99213; G0463